=== PATIENT | female | born 1950 | race Caucasian/White ===

== ENCOUNTER → 2016-05-08 | Outpatient (CLI) | payer MEDICARE, MEDICAID ==
[~2016-05-08] VITALS: Ht 154.9 cm; Wt 106.4 kg
[~2016-05-08] MED LIST: ALBUTEROL0.83 MG/ML IH; BUDEPRION XL300 MG PO; CEPHALEXIN500 M1 PO; CLARITIN 1010 MG/TAB PO; COLACE 100100 MG/CAP PO; CYANOCOBAL1000 MCG/M IM; ESTRACE0.5 MG PO; FLONASEALLERGY NS; FLOVENT DI50 MCG/Act NAS; FOLIC ACID 11 MG/TA1 PO; GLUMETZA500 MG PO; IPRATROPIUM BROM3 M1 IH; KLONOPIN 1MG1 MG PO; NICODERM C21 MG/PATC TOP; NORCO 325 MG-101 TAB PO; NORCO 325 MG-51 TAB PO; ONGLYZA5 MG PO; PREDNISONE20 MG PO; PREMARIN 0.60.625 M1 PO; PROAIR HFA0.09 MG/AC IH; RT ADVAIR 128 DISKUS IH; SINGULAIR 110 MG/TAB PO; VICTOZA6 MG/ML SC; WELLBUTRIN SR150 M1 PO; ZITHROMAX Z PA250 MG PO; ZOCOR 80MG80 MG PO
[2016-05-08 14:06] VITALS: BP 138/70; PULSE 72
[2016-05-08 14:55] VITALS: BP 138/70; PULSE 72
== END ==
LOC: LIGHT 14:00
DX: K21.9 Gastro-esophageal reflux disease without esophagitis (principal); I10 Essential (primary) hypertension; F32.89 Other specified depressive episodes; E66.01 Morbid (severe) obesity due to excess calories; Z68.41 Body mass index [BMI] 40.0-44.9, adult

== ENCOUNTER → 2016-05-25 | Outpatient (REF) | LOC: ZLAB.WCH 13:23 | DX: Z01.89 Encounter for other specified special examinations (principal) ==

== ENCOUNTER 2016-05-28 12:52 | Outpatient (RCR) | payer MEDICARE, MEDICAID | END 2016-05-29 07:48 | LOC: WSPT 12:52 | DX: G35 Multiple sclerosis (principal); R53.1 Weakness; M15.9 Polyosteoarthritis, unspecified ==

== ENCOUNTER → 2016-10-16 | Outpatient (REF) | LOC: ZLAB.WCH 18:16 | DX: Z01.89 Encounter for other specified special examinations (principal) ==

== ENCOUNTER 2017-05-25 18:41 | Emergency (ER) | payer MEDICARE, MEDICAID ==
[~2017-05-25] VITALS: Ht 154.9 cm; Wt 95.5 kg
[2017-05-25 18:45] VITALS: BP 154/67; TEMP 97.8
[2017-05-25 20:37] VITALS: PULSE 77
== END 2017-05-25 20:39 | disposition home or self-care (01) ==
LOC: COL.ER 18:41
DX: S46.911A Strain of unspecified muscle, fascia and tendon at shoulder and upper arm level, right arm, initial encounter (principal); V47.0XXA Car driver injured in collision with fixed or stationary object in nontraffic accident, initial encounter; Y92.414 Local residential or business street as the place of occurrence of the external cause; E11.9 Type 2 diabetes mellitus without complications; I25.10 Atherosclerotic heart disease of native coronary artery without angina pectoris; Z95.5 Presence of coronary angioplasty implant and graft; Z79.84 Long term (current) use of oral hypoglycemic drugs; Z91.040 Latex allergy status

== ENCOUNTER 2017-09-06 14:29 | Inpatient (IN) | payer MEDICARE ==
[~2017-09-06] VITALS: Ht 154.9 cm; Wt 79.0 kg
[2017-09-06] VITALS (188 sets, daily range): BP systolic 132; BP diastolic 76; PULSE 94; TEMP 98.3; O2SAT 90–100
[2017-09-06 15:17] LABS: BASO % 0.2 % (0.0-2.0); EOS # 0.1 (0.0-0.7); EOS % 0.4 % (0-4.0); GRAN # 8.8 (1.4-6.5); GRAN % 63.9 % (42.2-75.2); HEMATOCRIT 45.3 % (37.0-47.0); HEMOGLOBIN 15.3 g/dl (12.5-16.0); LYMPH # 3.5 (1.2-3.4); LYMPH % 25.5 % (20.0-51.0); MEAN CELL VOLUME 84 fl (80.0-100.0); MEAN CORPUSCULAR HEMOGLOBIN 29 pg (27.0-31.0); MEAN CORPUSCULAR HGB CONC 34 g/dl (33.0-37.0); MEAN PLATELET VOLUME 11.6 fl (7.4-10.4); MONO # 1.4 (0.1-0.6); MONO % 9.7 % (1.7-9.3); PLATELET COUNT 209 K/mm3 (130-400); RED BLOOD COUNT 5.37 M/mm3 (4.10-5.30); REDCELL DISTRIBUTION WIDTH-CV 14.1 % (11.5-14.5)
[2017-09-06 15:26] LABS: ALBUMIN 4.4 gm/dL (3.5-5.0); BILIRUBIN,TOTAL 1.2 mg/dL (0.0-1.0); CALCIUM 10.2 mg/dL (8.4-10.2); CREATININE, serum 1.14 mg/dL (0.52-1.25); POTASSIUM 3.7 mmol/L (3.4-5.0); TOTAL PROTEIN 8.4 gm/dL (6.4-8.2)
[2017-09-06 15:43] LABS: TROPONIN-I 0.207 ng/mL (0.000-0.034)
[2017-09-06 16:19] LABS: COLLECTION METHOD CATHETER
[2017-09-06 16:29] LABS: MUCOUS Present /lpf; PH 5 (5-8); SQUAMOUS EPITHELIAL None Seen /hpf; URINE APPEARANCE Cloudy; URINE BACTERIA None Seen /hpf; URINE BILIRUBIN Negative (NEGATIVE); URINE BLOOD 3+ (NEGATIVE); URINE COLOR Amber; URINE GLUCOSE Negative (NEGATIVE); URINE KETONE Negative (NEGATIVE); URINE LEUKOCYTE ESTERASE Negative (NEGATIVE); URINE NITRATE Negative (NEGATIVE); URINE PROTEIN(semi-quant) 1+ (NEGATIVE); URINE RBC >50 /hpf
[2017-09-06] MEDS ORDERED: RT ADVAIR 228 DISKUS IH (18:33)
[2017-09-06] MEDS ORDERED: LINZESS145CAP PO (18:34)
[2017-09-06] MEDS ORDERED: VESICARE10 MG PO (18:36)
[2017-09-06] MEDS ORDERED: XYZAL5 MG PO (18:36)
[2017-09-06] MEDS ORDERED: WELLBUTRIN XL300 M1 PO (18:37)
[2017-09-06] MEDS ORDERED: D3-5050000 IU PO (18:39)
[2017-09-06] MEDS ORDERED: ATROVENT I0.2 MG/1 M IH (18:40)
[2017-09-06 23:02] LABS: TRICYCLIC ANTIDEPRESS URINE NEGATIVE
[2017-09-07] VITALS (650 sets, daily range): BP systolic 141–150; BP diastolic 59–98; PULSE 78–85; TEMP 97.5–98.4; O2SAT 86–100
[2017-09-07 05:51] LABS: BASO % 0.2 % (0.0-2.0); EOS % 0.2 % (0-4.0); GRAN # 6.9 (1.4-6.5); GRAN % 74.5 % (42.2-75.2); HEMATOCRIT 41.8 % (37.0-47.0); HEMOGLOBIN 14.2 g/dl (12.5-16.0); LYMPH # 1.7 (1.2-3.4); LYMPH % 17.8 % (20.0-51.0); MEAN CELL VOLUME 84 fl (80.0-100.0); MEAN CORPUSCULAR HEMOGLOBIN 28 pg (27.0-31.0); MEAN CORPUSCULAR HGB CONC 34 g/dl (33.0-37.0); MEAN PLATELET VOLUME 11.4 fl (7.4-10.4); MONO # 0.6 (0.1-0.6); MONO % 6.9 % (1.7-9.3); PLATELET COUNT 182 K/mm3 (130-400); REDCELL DISTRIBUTION WIDTH-CV 14.3 % (11.5-14.5)
[2017-09-07 05:55] LABS: CALCIUM 9.3 mg/dL (8.4-10.2); CHOLESTEROL RISK RATIO 4.4; CREATININE, serum 0.83 mg/dL (0.52-1.25); POTASSIUM 3.5 mmol/L (3.4-5.0)
[2017-09-07 06:10] LABS: TROPONIN-I 0.112 ng/mL (0.000-0.034)
[2017-09-08 00:17] VITALS: BP 120/77; PULSE 67; TEMP 97.3
[2017-09-08 04:57] VITALS: BP 145/79; PULSE 141; TEMP 97.3
[2017-09-08 07:24] VITALS: BP 142/85; PULSE 76; TEMP 98.4
[2017-09-08 12:57] VITALS: BP 124/63; PULSE 72; TEMP 98.2
[2017-09-08 16:37] VITALS: BP 137/67; PULSE 67; TEMP 98.4
[2017-09-08 20:01] VITALS: BP 137/67; PULSE 72; TEMP 97.5
[2017-09-09 04:10] VITALS: BP 143/78; PULSE 71; TEMP 97.4
[2017-09-09 06:49] LABS: BASO % 0.4 % (0.0-2.0); EOS # 0.2 (0.0-0.7); EOS % 2.4 % (0-4.0); GRAN # 4.7 (1.4-6.5); HEMATOCRIT 39.9 % (37.0-47.0); HEMOGLOBIN 13.4 g/dl (12.5-16.0); LYMPH # 2.2 (1.2-3.4); LYMPH % 27.9 % (20.0-51.0); MEAN CELL VOLUME 86 fl (80.0-100.0); MEAN CORPUSCULAR HEMOGLOBIN 29 pg (27.0-31.0); MEAN CORPUSCULAR HGB CONC 34 g/dl (33.0-37.0); MEAN PLATELET VOLUME 12.1 fl (7.4-10.4); MONO # 0.7 (0.1-0.6); PLATELET COUNT 187 K/mm3 (130-400); RED BLOOD COUNT 4.65 M/mm3 (4.10-5.30); REDCELL DISTRIBUTION WIDTH-CV 14.6 % (11.5-14.5)
[2017-09-09 07:06] LABS: CALCIUM 9.3 mg/dL (8.4-10.2); CREATININE, serum 0.82 mg/dL (0.52-1.25); POTASSIUM 3.6 mmol/L (3.4-5.0)
[2017-09-09 08:08] VITALS: BP 113/64; PULSE 73; TEMP 98.2
[2017-09-09 11:20] VITALS: BP 152/82; PULSE 79; TEMP 97.5
[2017-09-09 11:32] LABS: GLUCOSE,CSF 74 mg/dL (40-70); TOTAL PROTEIN,CSF 50 mg/dL (15-45)
[2017-09-09 12:12] LABS: CSF COLOR COLORLESS
[2017-09-09 12:13] LABS: CSF APPEARANCE CLEAR
[2017-09-09 12:14] LABS: CSF RBC 30 /mm3 (0-0)
[2017-09-09 16:12] VITALS: BP 155/79; PULSE 65; TEMP 98.8
[2017-09-09 20:30] VITALS: BP 157/98; PULSE 76; TEMP 97.9
[2017-09-09 23:49] VITALS: BP 152/79; PULSE 74; TEMP 98.2
[2017-09-10 03:29] VITALS: BP 144/82; PULSE 78; TEMP 97.4
[2017-09-10 07:27] VITALS: BP 146/90; PULSE 73; TEMP 97.9
[2017-09-10 11:45] VITALS: BP 146/65; PULSE 69; TEMP 97.5
[2017-09-10] MEDS ORDERED: DIGITEK0.125 MG PO (14:32)
[2017-09-10] MEDS ORDERED: TOPROL XL 25MG25 MG PO (14:33)
[2017-09-10] MEDS ORDERED: ALTACE 5MG5 MG PO (14:33)
[2017-09-10] MEDS ORDERED: ASPIRIN E.C. 8181 MG PO (14:34)
[2017-09-10] MEDS ORDERED: NAMENDA5 MG PO (14:39)
[2017-09-10 15:22] VITALS: BP 112/65; PULSE 72; TEMP 98
== END 2017-09-10 16:15 | DRG 884 ==
LOC: COL.ER 14:29 → MEDICAL 16:01 → ICU 16:01 → MEDICAL 19:00
PROVIDERS: Emergency Medicine; Nurse Practitioner Family; Psychiatry & Neurology Neurology
PROC: 009U3ZX Drainage of Spinal Canal, Percutaneous Approach, Diagnostic (ICD-10-PCS; principal; 2017-09-08)
DX: F03.90 Unspecified dementia, unspecified severity, without behavioral disturbance, psychotic disturbance, mood disturbance, and anxiety (principal); F05 Delirium due to known physiological condition; Q21.1 Atrial septal defect; G35 Multiple sclerosis; I08.0 Rheumatic disorders of both mitral and aortic valves; I65.23 Occlusion and stenosis of bilateral carotid arteries; I25.10 Atherosclerotic heart disease of native coronary artery without angina pectoris; I10 Essential (primary) hypertension; E11.42 Type 2 diabetes mellitus with diabetic polyneuropathy; J44.9 Chronic obstructive pulmonary disease, unspecified; Z95.5 Presence of coronary angioplasty implant and graft; F17.210 Nicotine dependence, cigarettes, uncomplicated; Z91.81 History of falling; Z91.14 Patient's other noncompliance with medication regimen
CPT/HCPCS: OP; 99222-AI; 99232-AI; 99233-AI; A9585; G0378; G8978-GP; G8979-GP; G9168-GN; G9169-GN; J1630; J1650; J3475; J7030

== ENCOUNTER → 2017-09-15 | Outpatient (CLI) | payer MEDICARE ==
[~2017-09-15] MED LIST changes: +ALTACE 5MG5 MG PO; +ASPIRIN E.C. 8181 MG PO; +ATROVENT I0.2 MG/1 M IH; +D3-5050000 IU PO; +DIGITEK0.125 MG PO; +LINZESS145CAP PO; +NAMENDA5 MG PO; +RT ADVAIR 228 DISKUS IH; +TOPROL XL 25MG25 MG PO; +VESICARE10 MG PO; +WELLBUTRIN XL300 M1 PO; +XYZAL5 MG PO
[2017-09-16 16:50] LABS: COLLECTION METHOD CLEAN CATCH
[2017-09-16 17:12] LABS: MUCOUS Present /lpf; PH 5 (5-8); SQUAMOUS EPITHELIAL 0-2 /hpf; URINE APPEARANCE Turbid; URINE BACTERIA None Seen /hpf; URINE BILIRUBIN Negative (NEGATIVE); URINE BLOOD 1+ (NEGATIVE); URINE COLOR Amber; URINE GLUCOSE Negative (NEGATIVE); URINE KETONE Negative (NEGATIVE); URINE LEUKOCYTE ESTERASE Negative (NEGATIVE); URINE NITRATE Negative (NEGATIVE); URINE PROTEIN(semi-quant) 1+ (NEGATIVE); URINE RBC 0-2 /hpf; URINE UROBILINOGEN Negative (NEGATIVE); URINE WBC None Seen /hpf
== END ==
LOC: ZCOL.LAB 19:40
PROVIDERS: Internal Medicine
DX: E11.9 Type 2 diabetes mellitus without complications (principal); G93.41 Metabolic encephalopathy

== ENCOUNTER → 2017-09-16 | Outpatient (REF) ==
[2017-09-16 18:45] LABS: THYROID STIMULATING HORMONE 2.76 uIU/mL (0.465-4.680)
== END ==
LOC: ZLAB.WCH 18:05
PROVIDERS: Internal Medicine
DX: Z01.89 Encounter for other specified special examinations (principal)

== ENCOUNTER → 2017-09-19 | Outpatient (REF) ==
[2017-09-19 09:31] LABS: BASO % 0.2 % (0.0-2.0); EOS # 0.3 (0.0-0.7); EOS % 1.9 % (0-4.0); GRAN # 10.3 (1.4-6.5); LYMPH # 2.8 (1.2-3.4); LYMPH % 18.8 % (20.0-51.0); MEAN CELL VOLUME 87 fl (80.0-100.0); MEAN CORPUSCULAR HEMOGLOBIN 29 pg (27.0-31.0); MEAN CORPUSCULAR HGB CONC 33 g/dl (33.0-37.0); MEAN PLATELET VOLUME 12.1 fl (7.4-10.4); MONO # 1.3 (0.1-0.6); MONO % 8.7 % (1.7-9.3); PLATELET COUNT 206 K/mm3 (130-400); RED BLOOD COUNT 4.18 M/mm3 (4.10-5.30); REDCELL DISTRIBUTION WIDTH-CV 14.7 % (11.5-14.5)
[2017-09-19 09:35] LABS: HEMATOCRIT 36.4 % (37.0-47.0)
== END ==
LOC: ZLAB.STJ 09:19
PROVIDERS: Internal Medicine
DX: Z01.89 Encounter for other specified special examinations (principal)

== ENCOUNTER → 2017-09-25 | Outpatient (REF) | LOC: ZLAB.STJ 14:24 | DX: Z53.8 Procedure and treatment not carried out for other reasons (principal); K92.1 Melena ==

== ENCOUNTER → 2017-09-26 | Outpatient (REF) ==
[2017-09-26 09:52] LABS: CALCIUM 9.8 mg/dL (8.4-10.2); CREATININE, serum 0.76 mg/dL (0.52-1.25); DIGOXIN 0.5 ng/mL (0.8-2.0); POTASSIUM 5.1 mmol/L (3.4-5.0)
== END ==
LOC: ZLAB.STJ 09:24
PROVIDERS: Internal Medicine
DX: R79.89 Other specified abnormal findings of blood chemistry (principal); Z79.899 Other long term (current) drug therapy

== ENCOUNTER → 2017-10-01 | Outpatient (REF) ==
[2017-10-01 09:37] LABS: COLLECTION METHOD CATHETER
[2017-10-01 09:53] LABS: MUCOUS Present /lpf; PH 7 (5-8); SQUAMOUS EPITHELIAL 0-2 /hpf; URINE APPEARANCE Cloudy; URINE BACTERIA Rare /hpf; URINE BILIRUBIN Negative (NEGATIVE); URINE BLOOD 1+ (NEGATIVE); URINE CALCIUM OXALATE CRYSTAL Present /hpf; URINE COLOR Yellow; URINE GLUCOSE Negative (NEGATIVE); URINE KETONE Negative (NEGATIVE); URINE LEUKOCYTE ESTERASE 2+ (NEGATIVE); URINE NITRATE Positive (NEGATIVE); URINE PROTEIN(semi-quant) Negative (NEGATIVE); URINE UROBILINOGEN Negative (NEGATIVE); URINE WBC 20-50 /hpf
== END ==
LOC: ZLAB.STJ 09:36
PROVIDERS: Internal Medicine
DX: R82.90 Unspecified abnormal findings in urine (principal)

== ENCOUNTER → 2017-10-02 | Outpatient (CLI) | payer MEDICARE ==
[2017-10-02 15:25] LABS: BASO % 0.2 % (0.0-2.0); EOS # 0.4 (0.0-0.7); EOS % 3.3 % (0-4.0); GRAN % 65.8 % (42.2-75.2); HEMOGLOBIN 10.6 g/dl (12.5-16.0); LYMPH # 2.3 (1.2-3.4); LYMPH % 21.8 % (20.0-51.0); MEAN CELL VOLUME 89 fl (80.0-100.0); MEAN CORPUSCULAR HEMOGLOBIN 28 pg (27.0-31.0); MEAN CORPUSCULAR HGB CONC 32 g/dl (33.0-37.0); MEAN PLATELET VOLUME 10.4 fl (7.4-10.4); MONO # 0.9 (0.1-0.6); MONO % 8.1 % (1.7-9.3); PLATELET COUNT 312 K/mm3 (130-400); RED BLOOD COUNT 3.74 M/mm3 (4.10-5.30)
[2017-10-02 15:28] LABS: HEMATOCRIT 33.1 % (37.0-47.0)
[2017-10-02 15:40] LABS: ALBUMIN 3.7 gm/dL (3.5-5.0); BILIRUBIN,TOTAL 0.4 mg/dL (0.0-1.0); CALCIUM 9.4 mg/dL (8.4-10.2); CREATININE, serum 0.77 mg/dL (0.52-1.25); POTASSIUM 4.1 mmol/L (3.4-5.0)
[2017-10-02 15:48] LABS: ERYTHROCYTE SEDIMENTATION RATE 44 mm/hr (0-30)
[2017-10-02 23:23] LABS: IEPS IGA 264 mg/dL (69-517); IEPS IGG 642 mg/dL (552-1631); IEPS IGM 45 mg/dL (33-293); IEPS TP 6.1 g/dL (6.0-7.6)
[2017-10-02 23:54] LABS: FOLATE (FOLIC ACID) 14.4 ng/mL (7.0-31.4)
[2017-10-03 04:50] LABS: RPR (VDRL) Non-reactive (())
== END ==
LOC: COL.LAB 14:50
PROVIDERS: Psychiatry & Neurology Neurology
DX: Z11.3 Encounter for screening for infections with a predominantly sexual mode of transmission (principal); R79.82 Elevated C-reactive protein (CRP); D52.9 Folate deficiency anemia, unspecified; R70.0 Elevated erythrocyte sedimentation rate; R77.9 Abnormality of plasma protein, unspecified; D51.9 Vitamin B12 deficiency anemia, unspecified; R68.89 Other general symptoms and signs

== ENCOUNTER → 2017-11-11 | Outpatient (REF) ==
[~2017-11-11] MED LIST changes: +BREO IH; +FERROUS SU325 MG/TAB PO; +GLUCOPHAGE XR500 M1 PO; +LIPITOR 40MG TA40 MG PO; +MELATONIN5 M1 SL; +MIRALAX PA17 GM/Dose PO; +NAMENDA 10MG TA10 MG PO; +OMNICEF 300MG300 MG PO; +PACERONE200 MG PO; +PRINIVIL10 MG PO; +PROTONIX 40MG T40 MG PO; +TOPROL XL 50MG50 MG PO; +TYLENOL 500MG500 MG PO; +VITAMIND3 5000
[2017-11-11 09:30] LABS: CALCIUM 8.9 mg/dL (8.4-10.2); CREATININE, serum 1.04 mg/dL (0.52-1.25); MAGNESIUM 1.6 mg/dL (1.6-2.3); POTASSIUM 4.1 mmol/L (3.4-5.0)
== END ==
LOC: ZLAB.STJ 09:13
PROVIDERS: Internal Medicine
DX: I10 Essential (primary) hypertension (principal)

== ENCOUNTER → 2017-12-12 | Outpatient (REF) | LOC: ZLAB.WCH 19:28 | DX: Z01.89 Encounter for other specified special examinations (principal) ==

== ENCOUNTER → 2017-12-20 | Outpatient (REF) ==
[~2017-12-20] MED LIST changes: +DEMADEX 20MG20 M1 PO; +K-DUR 10 MEQ T10 MEQ PO
[2017-12-20 09:40] LABS: CREATININE, serum 1.13 mg/dL (0.52-1.25)
== END ==
LOC: ZLAB.STJ 09:26
PROVIDERS: Internal Medicine
DX: Z01.818 Encounter for other preprocedural examination (principal)

== ENCOUNTER 2017-12-24 20:00 | Emergency (ER) | payer MEDICARE, MEDICAID ==
[~2017-12-24] VITALS: Ht 61 cm; Wt 94.1 kg
[~2017-12-24 20:00] MED LIST changes: -DEMADEX 20MG20 M1 PO; -K-DUR 10 MEQ T10 MEQ PO
[2017-12-24 20:01] VITALS: TEMP 97.8
[2017-12-24 20:43] LABS: BASO % 0.4 % (0.0-2.0); EOS # 0.2 (0.0-0.7); EOS % 2.4 % (0-4.0); GRAN # 4.9 (1.4-6.5); GRAN % 61.5 % (42.2-75.2); HEMOGLOBIN 11.4 g/dl (12.5-16.0); LYMPH % 25.6 % (20.0-51.0); MEAN CELL VOLUME 85 fl (80.0-100.0); MEAN CORPUSCULAR HEMOGLOBIN 27 pg (27.0-31.0); MEAN CORPUSCULAR HGB CONC 31 g/dl (33.0-37.0); MEAN PLATELET VOLUME 11.2 fl (7.4-10.4); MONO # 0.8 (0.1-0.6); MONO % 9.8 % (1.7-9.3); PLATELET COUNT 204 K/mm3 (130-400); RED BLOOD COUNT 4.31 M/mm3 (4.10-5.30); REDCELL DISTRIBUTION WIDTH-CV 17.6 % (11.5-14.5)
[2017-12-24 20:47] LABS: INR 1.1 (0.8-3.0); PROTHROMBIN TIME 12.4 SECONDS (9.7-12.8)
[2017-12-24 20:49] LABS: PARTIAL THROMBOPLASTIN TIME 32.9 SECONDS (26.0-37.0)
[2017-12-24 20:50] LABS: HEMATOCRIT 36.6 % (37.0-47.0)
[2017-12-24] MEDS ORDERED: MIRALAX PA17 GM/Dose PO (20:54)
[2017-12-24] MEDS ORDERED: BREO IH (20:54)
[2017-12-24 20:55] LABS: ALBUMIN 3.8 gm/dL (3.5-5.0); BILIRUBIN,TOTAL 0.4 mg/dL (0.0-1.0); CREATININE, serum 1.23 mg/dL (0.52-1.25)
[2017-12-24] MEDS ORDERED: DEMADEX 20MG20 M1 PO ×2 (20:56→20:59)
[2017-12-24] MEDS ORDERED: K-DUR 10 MEQ T10 MEQ PO (20:57)
[2017-12-24 21:05] LABS: TROPONIN-I 0.022 ng/mL (0.000-0.034)
[2017-12-24 23:23] VITALS: BP 135/69; PULSE 61
== END 2017-12-24 23:26 | disposition home or self-care (01) ==
LOC: COL.ER 20:00
PROVIDERS: Family Medicine
DX: R07.89 Other chest pain (principal); I50.9 Heart failure, unspecified; I10 Essential (primary) hypertension; E78.5 Hyperlipidemia, unspecified; Z79.51 Long term (current) use of inhaled steroids; Z79.84 Long term (current) use of oral hypoglycemic drugs

== ENCOUNTER → 2017-12-27 | Outpatient (CLI) | payer MEDICARE, MEDICAID ==
[~2017-12-27] MED LIST changes: +DEMADEX 20MG20 M1 PO; +K-DUR 10 MEQ T10 MEQ PO
== END ==
LOC: COL.RAD 12-23 08:15
DX: M99.71 Connective tissue and disc stenosis of intervertebral foramina of cervical region (principal); I50.9 Heart failure, unspecified; M17.12 Unilateral primary osteoarthritis, left knee; M48.02 Spinal stenosis, cervical region; M47.812 Spondylosis without myelopathy or radiculopathy, cervical region
CPT/HCPCS: A9585

== ENCOUNTER → 2018-02-11 | Outpatient (CLI) | payer MEDICARE, MEDICAID | LOC: MC.RAD 13:00 | DX: Z12.31 Encounter for screening mammogram for malignant neoplasm of breast (principal); M85.80 Other specified disorders of bone density and structure, unspecified site ==

== ENCOUNTER → 2018-03-27 | Outpatient (REF) ==
[~2018-03-27] MED LIST changes: +CORDARONE200 MG/TAB PO; +DULCOLAX STOOL100 MG PO; -GLUCOPHAGE XR500 M1 PO; +GLUCOPHAGE500 MG/TAB PO; +MELATONIN5 M1 PO; -PRINIVIL10 MG PO; +PRINIVIL20 MG PO
== END ==
LOC: ZLAB.WCH 16:44
DX: Z01.89 Encounter for other specified special examinations (principal)

== ENCOUNTER → 2018-05-21 | Outpatient (REF) | LOC: ZLAB.STJ 13:49 | DX: R94.6 Abnormal results of thyroid function studies (principal) ==

== ENCOUNTER → 2018-05-21 | Outpatient (CLI) | payer MEDICARE, MEDICAID | LOC: ZLAB.STJ 15:44 | DX: R94.6 Abnormal results of thyroid function studies (principal) ==

== ENCOUNTER → 2018-06-11 | Outpatient (CLI) | payer MEDICARE, MEDICAID | LOC: ZLAB.STJ 17:01 | DX: E03.9 Hypothyroidism, unspecified (principal); Z95.0 Presence of cardiac pacemaker ==

== ENCOUNTER → 2018-10-10 | Outpatient (REF) ==
[2018-10-10 10:08] LABS: HEMATOCRIT 39.1 % (37.0-47.0); HEMOGLOBIN 12.5 g/dl (12.5-16.0); MEAN CELL VOLUME 98 fl (80.0-100.0); MEAN CORPUSCULAR HEMOGLOBIN 31 pg (27.0-31.0); MEAN CORPUSCULAR HGB CONC 32 g/dl (33.0-37.0); MEAN PLATELET VOLUME 12.2 fl (7.4-10.4); PLATELET COUNT 193 K/mm3 (130-400); RED BLOOD COUNT 3.99 M/mm3 (4.10-5.30); REDCELL DISTRIBUTION WIDTH-CV 13.7 % (11.5-14.5)
[2018-10-10 10:24] LABS: BILIRUBIN,TOTAL 0.5 mg/dL (0.0-1.0); CALCIUM 9.8 mg/dL (8.4-10.2); CREATININE, serum 1.26 (0.52-1.25); POTASSIUM 4.9 mmol/L (3.4-5.0); TOTAL PROTEIN 7.4 gm/dL (6.4-8.2)
[2018-10-10 10:53] LABS: THYROID STIMULATING HORMONE 9.56 uIU/mL (0.465-4.680)
== END ==
LOC: ZLAB.STJ 10:02
PROVIDERS: Internal Medicine
DX: E83.32 Hereditary vitamin D-dependent rickets (type 1) (type 2) (principal); R79.89 Other specified abnormal findings of blood chemistry; R68.89 Other general symptoms and signs; R73.09 Other abnormal glucose; R94.6 Abnormal results of thyroid function studies

== ENCOUNTER → 2018-11-07 | Outpatient (REF) ==
[2018-11-07 10:32] LABS: CALCIUM 9.2 mg/dL (8.4-10.2); CHOLESTEROL RISK RATIO 2.5; CREATININE, serum 1.15 (0.52-1.25); POTASSIUM 4.5 mmol/L (3.4-5.0)
== END ==
LOC: ZLAB.STJ 09:59
PROVIDERS: Internal Medicine
DX: E78.5 Hyperlipidemia, unspecified (principal); R79.89 Other specified abnormal findings of blood chemistry

== ENCOUNTER → 2019-02-03 | Outpatient (CLI) | payer MEDICARE, MEDICAID ==
[2019-02-03 10:32] LABS: COLLECTION METHOD CLEAN CATCH
[2019-02-03 10:48] LABS: MUCOUS Present /lpf; PH 5 (5-8); SQUAMOUS EPITHELIAL 0-2 /hpf; URINE APPEARANCE Hazy; URINE BACTERIA Occasional /hpf; URINE BILIRUBIN Negative (NEGATIVE); URINE BLOOD Negative (NEGATIVE); URINE COLOR Yellow; URINE GLUCOSE Negative (NEGATIVE); URINE KETONE Negative (NEGATIVE); URINE LEUKOCYTE ESTERASE 2+ (NEGATIVE); URINE NITRATE Negative (NEGATIVE); URINE PROTEIN(semi-quant) Negative (NEGATIVE); URINE UROBILINOGEN Negative (NEGATIVE)
== END ==
LOC: ZLAB.STJ 09:48
PROVIDERS: Internal Medicine
DX: N39.0 Urinary tract infection, site not specified (principal)

== ENCOUNTER → 2019-02-19 | Outpatient (CLI) | payer MEDICARE, MEDICAID ==
[2019-02-19 13:33] LABS: BASO % 0.3 % (0.0-2.0); EOS % 15.2 % (0-4.0); GRAN # 3.6 (1.4-6.5); HEMOGLOBIN 11.5 g/dl (12.5-16.0); LYMPH # 1.4 (1.2-3.4); LYMPH % 20.9 % (20.0-51.0); MEAN CELL VOLUME 100 fl (80.0-100.0); MEAN CORPUSCULAR HEMOGLOBIN 32 pg (27.0-31.0); MEAN CORPUSCULAR HGB CONC 32 g/dl (33.0-37.0); MEAN PLATELET VOLUME 13.8 fl (7.4-10.4); MONO # 0.5 (0.1-0.6); MONO % 8.3 % (1.7-9.3); PLATELET COUNT 142 K/mm3 (130-400); RED BLOOD COUNT 3.62 M/mm3 (4.10-5.30); REDCELL DISTRIBUTION WIDTH-CV 13.9 % (11.5-14.5)
[2019-02-19 13:35] LABS: HEMATOCRIT 36.1 % (37.0-47.0)
[2019-02-19 13:45] LABS: ALBUMIN 3.7 gm/dL (3.5-5.0); BILIRUBIN,TOTAL 0.8 mg/dL (0.0-1.0); CALCIUM 9.1 mg/dL (8.4-10.2); CREATININE, serum 0.97 (0.52-1.25); POTASSIUM 4.6 mmol/L (3.4-5.0); TOTAL PROTEIN 7.1 gm/dL (6.4-8.2)
[2019-02-19 14:14] LABS: THYROID STIMULATING HORMONE 4.54 uIU/mL (0.465-4.680)
== END ==
LOC: ZLAB.STJ 10:32
PROVIDERS: Internal Medicine
DX: E11.9 Type 2 diabetes mellitus without complications (principal); K90.9 Intestinal malabsorption, unspecified; I48.0 Paroxysmal atrial fibrillation; E03.2 Hypothyroidism due to medicaments and other exogenous substances

== ENCOUNTER → 2019-03-20 | Outpatient (CLI) | payer MEDICARE, MEDICAID ==
[2019-03-20 13:36] LABS: CREATININE, serum 1.08 (0.52-1.25); POTASSIUM 4.6 mmol/L (3.4-5.0)
== END ==
LOC: ZLAB.STJ 12:48
PROVIDERS: Internal Medicine
DX: E11.9 Type 2 diabetes mellitus without complications (principal)

== ENCOUNTER 2019-05-12 14:29 | Emergency (ER) | payer MEDICARE, MEDICAID ==
[~2019-05-12] VITALS: Ht 165.1 cm; Wt 93.6 kg
[2019-05-12 14:35] VITALS: TEMP 99.7
[2019-05-12 15:39] LABS: BASO % 0.5 % (0.0-2.0); EOS # 0.3 (0.0-0.7); GRAN # 3.5 (1.4-6.5); HEMATOCRIT 42.3 % (37.0-47.0); HEMOGLOBIN 13.5 g/dl (12.5-16.0); LYMPH # 1.6 (1.2-3.4); LYMPH % 26.5 % (20.0-51.0); MEAN CELL VOLUME 98 fl (80.0-100.0); MEAN CORPUSCULAR HEMOGLOBIN 31 pg (27.0-31.0); MEAN CORPUSCULAR HGB CONC 32 g/dl (33.0-37.0); MEAN PLATELET VOLUME 12.5 fl (7.4-10.4); MONO # 0.7 (0.1-0.6); MONO % 11.7 % (1.7-9.3); PLATELET COUNT 133 K/mm3 (130-400); RED BLOOD COUNT 4.33 M/mm3 (4.10-5.30); REDCELL DISTRIBUTION WIDTH-CV 14.3 % (11.5-14.5)
[2019-05-12 15:47] LABS: BILIRUBIN,TOTAL 0.9 mg/dL (0.0-1.0); C-REACTIVE PROTEIN 1.1 mg/dL (0.0-0.9); CALCIUM 9.1 mg/dL (8.4-10.2); CREATININE, serum 1.26 (0.52-1.25); POTASSIUM 4.3 mmol/L (3.4-5.0); TOTAL PROTEIN 7.9 gm/dL (6.4-8.2)
[2019-05-12 15:54] LABS: COLLECTION METHOD CLEAN CATCH
[2019-05-12 15:56] LABS: TROPONIN-I 0.014 ng/mL (0.000-0.035)
[2019-05-12 16:02] LABS: BUDDING YEAST Present /hpf; PH 5 (5-8); URINE APPEARANCE Hazy; URINE BACTERIA Rare /hpf; URINE BILIRUBIN Negative (NEGATIVE); URINE BLOOD Negative (NEGATIVE); URINE COLOR Yellow; URINE GLUCOSE Negative (NEGATIVE); URINE KETONE Negative (NEGATIVE); URINE LEUKOCYTE ESTERASE 3+ (NEGATIVE); URINE NITRATE Negative (NEGATIVE); URINE PROTEIN(semi-quant) Negative (NEGATIVE)
[2019-05-12] MEDS ORDERED: IPRATROPIUM BROM3 M1 IH (16:20)
[2019-05-12] MEDS ORDERED: OMNICEF 300MG300 MG PO (16:20)
[2019-05-12 17:06] VITALS: BP 135/89; PULSE 67
== END 2019-05-12 17:06 | disposition home or self-care (01) ==
LOC: COL.ER 14:29
PROVIDERS: Emergency Medicine
DX: J20.9 Acute bronchitis, unspecified (principal); N39.0 Urinary tract infection, site not specified; I25.10 Atherosclerotic heart disease of native coronary artery without angina pectoris; E78.00 Pure hypercholesterolemia, unspecified; J44.9 Chronic obstructive pulmonary disease, unspecified; I10 Essential (primary) hypertension; E11.9 Type 2 diabetes mellitus without complications; F03.90 Unspecified dementia, unspecified severity, without behavioral disturbance, psychotic disturbance, mood disturbance, and anxiety; Z95.9 Presence of cardiac and vascular implant and graft, unspecified; Z79.84 Long term (current) use of oral hypoglycemic drugs

== ENCOUNTER 2019-07-10 18:19 | Emergency (ER) | payer MEDICARE, MEDICAID ==
[~2019-07-10] VITALS: Ht 154.9 cm; Wt 100.0 kg
[~2019-07-10 18:19] MED LIST changes: +COREG12.5 MG PO; +DRISDOL50000 IU PO; +KLOR-CON 1010 MEQ PO; +LASIX 40MG TABL40 MG PO; +LEVOXYL0.1 MG PO; +MICROZIDE12.5 MG PO; +MUCINEX1200 MG PO; +NEURONTIN100 MG/CAP PO; +NITROSTAT0.4 MG/TAB SL; +NYSTATIN POWDER30 GM TOP; +PEPCID 20MG TAB20 MG PO
[2019-07-10 18:26] VITALS: BP 156/66; TEMP 97.5
[2019-07-10 19:42] VITALS: PULSE 60
== END 2019-07-10 19:42 | disposition home or self-care (01) ==
LOC: COL.ER 18:19
DX: M79.605 Pain in left leg (principal)

== ENCOUNTER → 2019-08-10 | Outpatient (CLI) | payer MEDICARE, MEDICAID ==
[2019-08-10 13:34] LABS: HEMATOCRIT 40.6 % (37.0-47.0); HEMOGLOBIN 12.8 g/dl (12.5-16.0); MEAN CELL VOLUME 100 fl (80.0-100.0); MEAN CORPUSCULAR HEMOGLOBIN 31 pg (27.0-31.0); MEAN CORPUSCULAR HGB CONC 32 g/dl (33.0-37.0); MEAN PLATELET VOLUME 12.7 fl (7.4-10.4); PLATELET COUNT 112 K/mm3 (130-400); RED BLOOD COUNT 4.08 M/mm3 (4.10-5.30); REDCELL DISTRIBUTION WIDTH-CV 15.2 % (11.5-14.5)
[2019-08-10 13:57] LABS: ALBUMIN 3.1 gm/dL (3.5-5.0); BILIRUBIN,TOTAL 1.1 mg/dL (0.0-1.0); CALCIUM 8.9 mg/dL (8.4-10.2); CREATININE, serum 1.15 (0.52-1.25); POTASSIUM 4.7 mmol/L (3.4-5.0); TOTAL PROTEIN 6.7 gm/dL (6.4-8.2)
[2019-08-10 14:09] LABS: EOSINOPHIL 33 % (0-4); LYMPHOCYTE 15 % (20.0-51.0); NEUTROPHILS 47 % (42.0-75.2); PLATELET ESTIMATE DECREASED (NORMAL)
[2019-08-10 14:28] LABS: THYROID STIMULATING HORMONE 2.8 uIU/mL (0.465-4.680)
== END ==
LOC: ZLAB.STJ 13:16
PROVIDERS: Internal Medicine
DX: E11.9 Type 2 diabetes mellitus without complications (principal)

== ENCOUNTER → 2019-10-08 | Outpatient (CLI) | payer MEDICARE, MEDICAID | LOC: ZCOL.LAB 18:48 | DX: Z01.84 Encounter for antibody response examination (principal); Z20.828 Contact with and (suspected) exposure to other viral communicable diseases ==

== ENCOUNTER → 2020-01-11 | Outpatient (CLI) | payer MEDICARE, MEDICAID ==
[2020-01-11 20:52] LABS: BILIRUBIN,TOTAL 1.1 mg/dL (0.0-1.0); CALCIUM 8.6 mg/dL (8.4-10.2); CREATININE, serum 1.34 (0.52-1.25); MAGNESIUM 1.7 mg/dL (1.6-2.3); POTASSIUM 3.9 mmol/L (3.4-5.0); TOTAL PROTEIN 6.2 gm/dL (6.4-8.2)
[2020-01-11 21:00] LABS: BASO # 0.1 (0.0-0.2); BASO % 0.7 % (0.0-2.0); EOS # 1.7 (0.0-0.7); EOS % 23.5 % (0-4.0); GRAN # 3.5 (1.4-6.5); GRAN % 47.9 % (42.2-75.2); HEMATOCRIT 37.6 % (37.0-47.0); HEMOGLOBIN 12.1 g/dl (12.5-16.0); LYMPH # 1.4 (1.2-3.4); MEAN CELL VOLUME 100 fl (80.0-100.0); MEAN CORPUSCULAR HEMOGLOBIN 32 pg (27.0-31.0); MEAN CORPUSCULAR HGB CONC 32 g/dl (33.0-37.0); MEAN PLATELET VOLUME 13.2 fl (7.4-10.4); MONO # 0.6 (0.1-0.6); MONO % 8.6 % (1.7-9.3); PLATELET COUNT 103 K/mm3 (130-400); RED BLOOD COUNT 3.78 M/mm3 (4.10-5.30); REDCELL DISTRIBUTION WIDTH-CV 15.7 % (11.5-14.5)
[2020-01-11 21:21] LABS: THYROID STIMULATING HORMONE 1.61 uIU/mL (0.465-4.680)
== END ==
LOC: ZCOL.LAB 20:00
PROVIDERS: Internal Medicine
DX: Z01.89 Encounter for other specified special examinations (principal)

== ENCOUNTER 2020-03-13 10:30 | Emergency (ER) | payer MEDICARE, MEDICAID ==
[~2020-03-13] VITALS: Ht 154.9 cm; Wt 97.7 kg
[2020-03-13 10:31] VITALS: TEMP 97.7
[2020-03-13 12:08] LABS: BASO # 0.1 (0.0-0.2); BASO % 0.7 % (0.0-2.0); EOS % 26.9 % (0-4.0); GRAN # 5.2 (1.4-6.5); GRAN % 46.4 % (42.2-75.2); HEMATOCRIT 40.8 % (37.0-47.0); HEMOGLOBIN 13.3 g/dl (12.5-16.0); LYMPH # 1.9 (1.2-3.4); LYMPH % 17.3 % (20.0-51.0); MEAN CELL VOLUME 98 fl (80.0-100.0); MEAN CORPUSCULAR HEMOGLOBIN 32 pg (27.0-31.0); MEAN CORPUSCULAR HGB CONC 33 g/dl (33.0-37.0); MEAN PLATELET VOLUME 12.4 fl (7.4-10.4); MONO % 8.5 % (1.7-9.3); PLATELET COUNT 110 K/mm3 (130-400); RED BLOOD COUNT 4.16 M/mm3 (4.10-5.30); REDCELL DISTRIBUTION WIDTH-CV 14.7 % (11.5-14.5)
[2020-03-13 12:14] LABS: ALBUMIN 3.3 gm/dL (3.5-5.0); BILIRUBIN,TOTAL 1.5 mg/dL (0.0-1.0); CALCIUM 8.9 mg/dL (8.4-10.2); CREATININE, serum 1.79 (0.52-1.25)
[2020-03-13 14:03] LABS: PH 5 (5-8); SQUAMOUS EPITHELIAL None Seen /hpf; URINE APPEARANCE Hazy; URINE BACTERIA Many /hpf; URINE BILIRUBIN Negative (NEGATIVE); URINE BLOOD 1+ (NEGATIVE); URINE COLOR Straw; URINE GLUCOSE Negative (NEGATIVE); URINE KETONE Negative (NEGATIVE); URINE LEUKOCYTE ESTERASE Trace (NEGATIVE); URINE NITRATE Negative (NEGATIVE); URINE PROTEIN(semi-quant) Negative (NEGATIVE); URINE RBC 0-2 /hpf; URINE UROBILINOGEN Negative (NEGATIVE)
[2020-03-13 14:08] LABS: COLLECTION METHOD CATHETER
[2020-03-13] MEDS ORDERED: OMNICEF 300MG300 MG PO (14:14)
[2020-03-13 14:34] VITALS: BP 118/46; PULSE 60
== END 2020-03-13 15:18 | disposition home or self-care (01) ==
LOC: COL.ER 10:30
PROVIDERS: Family Medicine
DX: S80.02XA Contusion of left knee, initial encounter (principal); R41.82 Altered mental status, unspecified; N39.0 Urinary tract infection, site not specified; R40.2410 Glasgow coma scale score 13-15, unspecified time; Z79.84 Long term (current) use of oral hypoglycemic drugs; Z79.82 Long term (current) use of aspirin; W19.XXXA Unspecified fall, initial encounter; Y92.009 Unspecified place in unspecified non-institutional (private) residence as the place of occurrence of the external cause
CPT/HCPCS: J0696

== ENCOUNTER → 2020-05-12 | Outpatient (CLI) | payer MEDICARE, MEDICAID ==
[~2020-05-12] MED LIST changes: +GOOD SENSE ANTI-IT1% TP; +PROVENTIL0.09 MG/A1 IH
[2020-05-12 16:40] LABS: BASO % 0.2 % (0.0-2.0); EOS % 0.1 % (0-4.0); GRAN # 10.4 (1.4-6.5); GRAN % 89.2 % (42.2-75.2); HEMATOCRIT 46.8 % (37.0-47.0); HEMOGLOBIN 15.3 g/dl (12.5-16.0); LYMPH # 0.7 (1.2-3.4); LYMPH % 6.3 % (20.0-51.0); MEAN CELL VOLUME 95 fl (80.0-100.0); MEAN CORPUSCULAR HEMOGLOBIN 31 pg (27.0-31.0); MEAN CORPUSCULAR HGB CONC 33 g/dl (33.0-37.0); MEAN PLATELET VOLUME 13.4 fl (7.4-10.4); MONO # 0.4 (0.1-0.6); MONO % 3.6 % (1.7-9.3); PLATELET COUNT 135 K/mm3 (130-400); RED BLOOD COUNT 4.93 M/mm3 (4.10-5.30); REDCELL DISTRIBUTION WIDTH-CV 16.6 % (11.5-14.5)
[2020-05-12 16:55] LABS: BILIRUBIN,TOTAL 3.1 mg/dL (0.0-1.0); CALCIUM 9.3 mg/dL (8.4-10.2); CREATININE, serum 1.72 (0.52-1.25); POTASSIUM 4.2 mmol/L (3.4-5.0); TOTAL PROTEIN 6.8 gm/dL (6.4-8.2)
[2020-05-12 17:08] LABS: C-REACTIVE PROTEIN 15.3 mg/dL (0.0-0.9)
[2020-05-12 17:30] LABS: ERYTHROCYTE SEDIMENTATION RATE 7 mm/hr (0-30)
== END ==
LOC: ZLAB.STJ 16:14
PROVIDERS: Internal Medicine
DX: I74.9 Embolism and thrombosis of unspecified artery (principal); I50.23 Acute on chronic systolic (congestive) heart failure; I11.0 Hypertensive heart disease with heart failure